=== PATIENT | female | born 1965 | race African-American/Black ===

== ENCOUNTER 2017-04-03 19:00 | Emergency (ER) | payer MEDICAID ==
[~2017-04-03] VITALS: Ht 170.2 cm; Wt 72.6 kg
[2017-04-03] MEDS ORDERED: DEPAKOTE250 MG PO (19:18)
[2017-04-03 19:30] VITALS: BP 125/74
--- NOTE | 2017-04-03 19:38 | Emergency Room Report ---
History of Present Illness General Chief Complaint: Fever Source: Patient Present Illness HPI 51 yo female patient presents to ER complaining of fever and flu-like symptoms x1 day. Patient complains of cough and congestion; complains of chest congestion and pain following onset of symptoms. Patient denies nausea, vomiting, diarrhea. Patient also complains of GAY. Denies vertigo, eye pain, loss of vision, hearing pain. Patient reports history of chronic ear infection and tinnitus being treated by primary care provider. Patient reports taking Excedrin and Ibuprofen this morning with mild relief of symptoms. Patient denies abdominal pain, dysuria, hematuria. Patient reports staying home from school secondary to flu symptoms. Patient denies history of sick contacts. Patient reports LMP began on March 30 and ended yesterday; denies abnormal menstrual period. Allergies: Coded Allergies: HYDROCODONE (Verified Allergy, Unknown, 04/03/17) Patient History Past Medical History: see triage record Last Menstrual Period: 03/30/17 Now: No Reviewed Nursing Documentation: PMH: Agreed, PSxH: Agreed Nursing Documentation-PMH Past Medical History: No History, Except For Review of Systems All Other Systems: negative except mentioned in HPI Physical Exam Vital Signs Date Time Temp Pulse Resp B/P (MAP) Pulse Ox O2 Delivery O2 Flow Rate FiO2 04/03/17 19:12 102.9 112 19 125/74 97 Room Air Sp02 EP Interpretation: reviewed, normal General Appearance: no apparent distress, alert, GCS 15, non-toxic Head: normocephalic, atraumatic Eyes: bilateral eye normal inspection, bilateral eye PERRL ENT: hearing grossly normal, normal pharynx, no angioedema, normal voice Neck: full range of motion, supple/symm/no masses Respiratory: chest non-tender, lungs clear, normal breath sounds, no respiratory distress, no retraction, no wheezing, speaking full sentences Cardiovascular #1: regular rate, rhythm Gastrointestinal: normal bowel sounds, non tender, soft, non-distended, no guarding, no rebound Musculoskeletal: back normal, digits/nails normal, gait/station normal, normal range of motion, non-tender Neurologic: alert, oriented x3, responsive, motor strength/tone normal, sensory intact, speech normal Psychiatric: mood/affect normal Skin: normal color, no rash, warm/dry, well hydrated Lymphatic: no adenopathy Medical Decision Making PA Attestation Dr. King is my supervising Physician whom patient management has been discussed with. Diagnostic Impression: Primary Impression: Upper respiratory tract infection ER Course Pt presents to ED c/o fever. DDX considered but are not limited to influenza, viral URI, pneumonia, strep throat, otitis media, sinusitis, UTI. VITAL SIGNS patient is febrile ORDERS: UA CXR EKG Influenza A/B ED INTERVENTIONS: Tylenol for fever and pain. Fever reduced following CXR negative for acute disease EKG negative for ST elevation, arrhythmia. UA shows microscopic hematuria, likely related to menstrual cycle. Patient instructed to followup with primary care provider and/or OBGYN for further treatment. Influenza swab negative. DISCHARGE: At this time pt is stable for d/c to home. Patient is no acute distress, nontoxic appearing, states "I feel better." -Rx given for Tylenol for fever/pain; patient complains of gastric distress with Ibuprofen. -Rx given for Tamiflu for influenza. Patient to take medications as instructed Will provide with patient care instructions and any necessary prescriptions. Care plan and follow-up instructions provided. Patient instructed to follow-up with primary care provider in 3 - 5 days. Patient questions asked and answered. Patient understands and agrees to treatment plan. ER precautions given. Patient instructed to return to ER immediately for any new or worsening of symptoms including but not limited to increasing SOB, persistent fever. Labs Test 04/03/17 20:20 Urine Color Pale yellow Urine Appearance Clear Urine pH 7 (4.5-8.0) Urine Specific [place] 1.005 (1.005-1.035) Urine Protein Negative (NEGATIVE) Urine Glucose (UA) Negative (NEGATIVE) Urine Ketones Negative (NEGATIVE) Urine Occult Blood 2+ (NEGATIVE) Urine Nitrite Negative (NEGATIVE) Urine Bilirubin Negative (NEGATIVE) Urine Urobilinogen Normal MG/DL (0.0-1.0) Urine Leukocyte Esterase Negative (NEGATIVE) Urine RBC 2-4 /HPF (0 - 2) Urine WBC 0-2 /HPF (0 - 2) Urine Squamous Epithelial Cells Few /LPF (NONE/OCC) Urine Bacteria Few /HPF (NONE) EKG Diagnostic Results Rate: tachycardiac Rhythm: NSR ST Segments: no acute changes Other Impression Reviewed by Dr. King. ASA given to the pt in ED: No PA Scribe Text Randall Penn PA-C Rhythm Strip Diag. Results EP Interpretation: yes Rate: 107 Rhythm: NSR, no PVC's, no ectopy MARVEL Scribe Text Randall Penn PA-C Chest X-Ray Diagnostic Results Chest X-Ray Diagnostic Results : Chest X-Ray Ordered: Yes # of Views/Limited/Complete: 1 View Indication: Chest Pain EP Interpretation: Yes PA Xray: Interpretation reviewed, by supervising MD, and agrees with findings. Interpretation: no consolidation, no effusion, no pneumothorax Impression: No acute disease - Reviewed by [facility] MARVEL Scribbret Text Randall Penn PA-C Last Vital Signs Date Time Temp Pulse Resp B/P (MAP) Pulse Ox O2 Delivery O2 Flow Rate FiO2 04/03/17 19:12 102.9 112 19 125/74 97 Room Air Disposition: HOME, SELF-CARE Condition: Stable Scripts Acetaminophen* (TYLENOL EXTRA STRENGTH*) 500 Mg Tablet 500 MG ORAL Q8H Y for Prn Headache/Temp > 101, #30 TAB 0 Refills Prov: Nakul Penn 04/03/17 Oseltamivir Phosphate (Tamiflu) 75 Mg Capsule 75 MG ORAL TWICE A DAY for 5 Days, #10 CAP Prov: Nakul Penn 04/03/17 Patient Instructions: Upper Gastrointestinal Series, [id number] Additional Instructions: Followup with primary care provider in 3 -5 days. Take medications as directed. Patient questions asked and answered. ER precautions given, patient instructed to return to ER immediately for any new or worsening of symptoms. Nakul Penn Apr 03, 2017 19:37
[2017-04-03] MEDS ORDERED: IBUPROFEN600 MG ORAL (19:55)
[2017-04-03] MEDS ORDERED: TAMIFLU75 MG ORAL (19:55)
[2017-04-03 20:52] LABS: APPEARANCE,URINE CLEAR; BILIRUBIN, URINE NEGATIVE (NEGATIVE); COLOR,URINE PALE YELLOW; GLUCOSE, URINE (UA) NEGATIVE (NEGATIVE); KETONES,URINE NEGATIVE (NEGATIVE); LEUKOCYTE ESTERASE ,URINE NEGATIVE (NEGATIVE); NITRITE,URINE NEGATIVE (NEGATIVE); PH,URINE 7 (4.5-8.0); PROTEIN,URINE NEGATIVE (NEGATIVE); UROBILINOGEN,URINE NORMAL MG/DL (0.0-1.0)
[2017-04-03 21:42] VITALS: BP 125/74
[2017-04-03] MEDS ORDERED: TYLENOL EXTRA500 MG ORAL (21:42)
--- NOTE | 2017-04-04 11:54 | Diagnostic Imaging Report ---
Indication: Chest pain Technique: One view of the chest Comparison: none Findings: Lungs and pleural spaces are clear. Heart size is normal Impression: No acute process This agrees with the preliminary interpretation provided overnight by [facility] teleradiology service.
--- NOTE | 2017-04-04 17:13 | Cardiology Report ---
APPROVED REPORT EKG Measurement Heart [id number] Sinus tachycardia Low voltage QRS Cannot rule out Anterior infarct, age undetermined Abnormal ECG
== END 2017-04-03 21:45 | disposition home or self-care (01) ==
LOC: EMR 19:35
DX: J06.9 Acute upper respiratory infection, unspecified (principal); Z88.6 Allergy status to analgesic agent
CPT/HCPCS: 71045; 81003; 86710; 93005; 99284

== ENCOUNTER 2017-08-24 19:29 | Emergency (ER) | payer MEDICAID ==
[~2017-08-24] VITALS: Ht 170.2 cm; Wt 74.8 kg
[~2017-08-24 19:29] MED LIST: DEPAKOTE250 MG PO; IBUPROFEN600 MG ORAL; TAMIFLU75 MG ORAL; TYLENOL EXTRA500 MG ORAL
[2017-08-24] MEDS ORDERED: Isovue-300 100ml vial INJ PRN (20:00)
[2017-08-24] MEDS ORDERED: Morphine Sulfate 4mg/ml Inj IVP ONE (20:00)
[2017-08-24 20:05] LABS: APPEARANCE,URINE CLEAR; BILIRUBIN, URINE NEGATIVE (NEGATIVE); COLOR,URINE PALE YELLOW; GLUCOSE, URINE (UA) NEGATIVE (NEGATIVE); KETONES,URINE NEGATIVE (NEGATIVE); LEUKOCYTE ESTERASE ,URINE NEGATIVE (NEGATIVE); NITRITE,URINE NEGATIVE (NEGATIVE); PH,URINE 8 (4.5-8.0); PROTEIN,URINE NEGATIVE (NEGATIVE); UROBILINOGEN,URINE NORMAL MG/DL (0.0-1.0)
--- NOTE | 2017-08-24 20:16 | Emergency Room Report ---
History of Present Illness General Chief Complaint: Abdominal Pain Source: Patient Present Illness HPI 51-year-old female with no major medical problems presents with 1 week of abdominal discomfort crampy, intermittent, sometimes epigastric, sometimes lower abdomen, worse with eating and drinking, and 2 days associated watery brown stools, total 10 episodes. Denies fevers, nausea, vomiting, antibiotic use , any obvious triggers. Allergies: Coded Allergies: HYDROCODONE (Verified Allergy, Unknown, 04/03/17) Patient History Past Medical History: see triage record Now: No Reviewed Nursing Documentation: PMH: Agreed; PSxH: Agreed Nursing Documentation-PMH Past Medical History: No History, Except For Review of Systems All Other Systems: negative except mentioned in HPI Physical Exam Vital Signs Date Time Temp Pulse Resp B/P (MAP) Pulse Ox O2 Delivery O2 Flow Rate FiO2 08/24/17 19:39 98.6 92 16 127/74 97 Room Air 98.6 Sp02 EP Interpretation: reviewed, normal General Appearance: no apparent distress, alert, non-toxic Head: normocephalic Eyes: bilateral eye normal inspection, bilateral eye PERRL, bilateral eye EOMI ENT: normal ENT inspection, hearing grossly normal, normal pharynx, no angioedema, normal voice, moist mucus membranes Neck: normal inspection, full range of motion, supple, supple/symm/no masses Respiratory: chest non-tender, lungs clear, normal breath sounds, chest symmetrical, palpation of chest normal Cardiovascular #1: normal peripheral pulses, regular rate, rhythm Cardiovascular #2: 2+ radial (R), 2+ radial (L) Gastrointestinal: normal inspection, non tender, soft, no mass, no guarding, no rebound Rectal: deferred Genitourinary: normal inspection, no CVA tenderness Musculoskeletal: back normal, gait/station normal, normal range of motion, non- tender, no calf tenderness Neurologic: alert, responsive, cleater III-XII nml as tested, motor strength/tone normal, sensory intact, speech normal Psychiatric: judgement/insight normal, memory normal, mood/affect normal, no suicidal/homicidal ideation Skin: normal color, no rash, warm/dry, normal turgor Lymphatic: no adenopathy Medical Decision Making Diagnostic Impression: Primary Impression: Abdominal pain Additional Impression: Hematuria ER Course Patient has had a normal workup other than having blood in her urine. CT scan, all labs, urinalysis, all otherwise unremarkable. Soft nontender abdomen on initial and repeat examination. IV morphine and Zofran helped, but then she started having crampy pain again, still nontender. Had no diarrhea here in the ED. Will discharge with Zantac twice a day and Bentyl when necessary. Recommend follow-up with PMD for gastroenterology referral CT/MRI/US Diagnostic Results CT/MRI/US Diagnostic Results : Imaging Test Ordered: ct abd/pelvis w/ iv contrast Impression no acute disease, possible slow gi transit based on finding of fecal contents within small bowel loops on [facility] reading Last Vital Signs Date Time Temp Pulse Resp B/P (MAP) Pulse Ox O2 Delivery O2 Flow Rate FiO2 08/24/17 19:39 98.6 92 16 127/74 97 Room Air 98.6 Disposition: HOME, SELF-CARE Condition: Stable Scripts Ranitidine Hcl* (ZANTAC*) 150 Mg Tablet 150 MG ORAL TWICE A DAY, #30 TAB Prov: BRIDGETT LOUIS M.D 08/24/17 Dicyclomine Hcl* (DICYCLOMINE HCL*) 10 Mg Capsule 10 MG PO QID PRN for Abdominal cramps, #10 CAP Prov: BRIDGETT LOUIS M.D 08/24/17 BRIDGETT LOUIS M.D Aug 24, 2017 20:16
[2017-08-24 20:21] LABS: BASOPHILS % (AUTO) 1.5 % (0.0-2.0); EOSINOPHILS % (AUTO) 2.6 % (0.0-3.0); HEMATOCRIT 39.1 % (37.0-47.0); HEMOGLOBIN 13.2 G/DL (12.0-16.0); LYMPHOCYTES % (AUTO) 28.6 % (20.0-45.0); MEAN CORPUSCULAR VOLUME 78 FL (80-99); MONOCYTES % (AUTO) 10.5 % (1.0-10.0); NEUTROPHILS % (AUTO) 56.8 % (45.0-75.0); PLATELET COUNT 221 K/UL (150-450); RED BLOOD COUNT 5.04 M/UL (4.20-5.40); WHITE BLOOD COUNT 4.3 K/UL (4.8-10.8)
[2017-08-24 20:29] LABS: ANION GAP 5 mmol/L (5-15); BLOOD UREA NITROGEN 14 mg/dL (7-18); CALCIUM 9.3 MG/DL (8.5-10.1); CARBON DIOXIDE 28 MMOL/L (21-32); CHLORIDE 104 MMOL/L (98-107); POTASSIUM 4.6 MMOL/L (3.5-5.1); SODIUM 137 MMOL/L (136-145)
[2017-08-24 20:34] LABS: ALANINE AMINOTRANSFERASE 27 U/L (12-78); ALBUMIN 3.6 G/DL (3.4-5.0); ALBUMIN/GLOBULIN RATIO 0.8 (1.0-2.7); ALKALINE PHOSPHATASE 48 U/L (46-116); ASPARTATE AMINO TRANSFERASE 31 U/L (15-37); BILIRUBIN,TOTAL 0.2 MG/DL (0.2-1.0)
[2017-08-24 21:15] VITALS: BP 138/75
--- NOTE | 2017-08-24 21:36 | Diagnostic Imaging Report ---
EXAM: CT Abdomen and Pelvis With Intravenous Contrast CLINICAL HISTORY: ABD PAIN TECHNIQUE: Axial computed tomography images of the abdomen and pelvis with intravenous contrast. CTDI is 14.03 mGy and DLP is 696 mGy-cm. One or more of the following dose reduction techniques were used: automated exposure control, adjustment of the mA and/or kV according to patient size, use of iterative reconstruction technique. COMPARISON: No relevant prior studies available. FINDINGS: Lung bases: Unremarkable. No mass. No consolidation. ABDOMEN: Liver: Unremarkable. No mass. Gallbladder and bile ducts: Unremarkable. No calcified stones. No ductal dilation. Pancreas: Unremarkable. No mass. No ductal dilation. Spleen: Benign small subcentimeter splenic cyst or hemangioma. Adrenals: Unremarkable. No mass. Kidneys and ureters: Unremarkable. No solid mass. No hydronephrosis. Stomach and bowel: Unremarkable. No obstruction. No mucosal thickening. PELVIS: Appendix: Normal appendix. Large stool burden throughout the colon. Fecal contents within small bowel loops, suggesting slow transit. Bladder: Unremarkable. No mass. Reproductive: Unremarkable as visualized. ABDOMEN and PELVIS: Intraperitoneal space: Unremarkable. No free air. No significant fluid collection. Bones/joints: No acute fracture. No dislocation. Soft tissues: Unremarkable. Vasculature: Unremarkable. No abdominal aortic aneurysm. Lymph nodes: Unremarkable. No enlarged lymph nodes. IMPRESSION: 1. Findings of slow transit, which may be a cause for pain. 2. Otherwise unremarkable study without explanation for patient's symptoms.
[2017-08-24] MEDS ORDERED: DICYCLOMINE HCL10 MG PO (21:56)
[2017-08-24] MEDS ORDERED: RANITIDINE HCL150 MG ORAL (21:56)
[2017-08-24] MEDS ORDERED: Dicyclomine 10mg Cap ORAL ONE (22:00)
[2017-08-24 22:19] VITALS: BP 110/75
[2017-08-24 22:20] VITALS: BP 110/75
== END 2017-08-24 22:20 | disposition home or self-care (01) ==
LOC: EMR 19:55
DX: R10.9 Unspecified abdominal pain (principal); Z88.8 Allergy status to other drugs, medicaments and biological substances; R31.9 Hematuria, unspecified
CPT/HCPCS: 36415; 74177; 80053; 81003; 83690; 84484; 85025; 96374; 96375; 99284; J2270; J2405; Q9967

== ENCOUNTER 2018-06-29 14:28 | Emergency (ER) | payer MEDICAID ==
[~2018-06-29] VITALS: Ht 165.1 cm; Wt 72.6 kg
[~2018-06-29 14:28] MED LIST changes: +DICYCLOMINE HCL10 MG PO; +RANITIDINE HCL150 MG ORAL
[2018-06-29 14:50] VITALS: BP 111/77
[2018-06-29] MEDS ORDERED: MECLIZINE HCL25 MG ORAL (15:08)
[2018-06-29] MEDS ORDERED: ROBAXIN-750750 MG PO (15:08)
[2018-06-29 15:17] VITALS: BP 111/77
--- NOTE | 2018-06-29 21:43 | Emergency Room Report ---
History of Present Illness General Chief Complaint: Dizziness Source: Patient Present Illness HPI The patient is a 52-year-old female presenting for feelings of dizziness as well as neck pain. She states that she was moving her neck quickly approximately 3 weeks prior and felt a sharp pain. Pain has persisted and is now a dull ache described as an 8 out of 10 with movement. Does not radiate. She has not taken any medications for this yet. She is also feeling dizziness with quick head movement. She denies other symptoms including nausea, vomiting , fever, chills, chest pain, headache Allergies: Coded Allergies: HYDROCODONE (Verified Allergy, Unknown, 04/03/17) Patient History Past Medical History: see triage record Pertinent Family History: none Last Menstrual Period: 06/29/2018 Reviewed Nursing Documentation: PMH: Agreed; PSxH: Agreed Nursing Documentation-PMH Past Medical History: No History, Except For Review of Systems All Other Systems: negative except mentioned in HPI Physical Exam Vital Signs Date Time Temp Pulse Resp B/P (MAP) Pulse Ox O2 Delivery O2 Flow Rate FiO2 06/29/18 14:44 98.2 78 16 97 Room Air 06/29/18 14:50 111/77 Sp02 EP Interpretation: reviewed, normal General Appearance: no apparent distress, alert, GCS 15, non-toxic Head: normocephalic, atraumatic Eyes: bilateral eye normal inspection, bilateral eye PERRL ENT: hearing grossly normal, normal pharynx, no angioedema, normal voice, uvula midline Neck: full range of motion, no carotid bruits, supple/symm/no masses, tender lateral Respiratory: chest non-tender, lungs clear, normal breath sounds, speaking full sentences Cardiovascular #1: regular rate, rhythm, no edema Musculoskeletal: back normal, gait/station normal, normal range of motion, non- tender Neurologic: alert, oriented x3, responsive, motor strength/tone normal, sensory intact, speech normal, nystagmus - horizontal Psychiatric: judgement/insight normal, memory normal, mood/affect normal, no suicidal/homicidal ideation Skin: normal color, no rash, warm/dry, well hydrated Medical Decision Making PA Attestation Dr. Borrego is my supervising physician. Patient management was discussed with my supervising physician Diagnostic Impression: Primary Impression: Cervical strain Qualified Codes: S16.1XXA - Strain of muscle, fascia and tendon at neck level , initial encounter Additional Impression: BPPV (benign paroxysmal positional vertigo) Qualified Codes: H81.10 - Benign paroxysmal vertigo, unspecified ear ER Course The patient is a 52-year-old female presenting for feelings of dizziness as well as neck pain. Differential diagnoses considered but not limited to: BPPV, cervical strain, migraine, carotid dissection, Mnire's disease, among others Physical exam: Afebrile. No apparent distress There is tenderness to palpation over the cervical paraspinal muscles. PERRL. EOMI. there is horizontal nystagmus. Fatigable. No carotid bruits The patient's feeling of dizziness is elicited with rapid horizontal head movement. She is given a prescription for meclizine and robaxin. She is told that she needs to follow-up with her primary doctor and may need referral for neurology and/or ENT ER precautions given Last Vital Signs Date Time Temp Pulse Resp B/P (MAP) Pulse Ox O2 Delivery O2 Flow Rate FiO2 06/29/18 15:17 98.2 78 16 111/77 97 Room Air Status: improved Disposition: HOME, SELF-CARE Condition: Improved Scripts Meclizine Hcl* (MECLIZINE*) 25 Mg Tablet 25 MG ORAL THREE TIMES A DAY, #20 TAB Prov: LIZANDRO DACOSTA P.A. 06/29/18 Methocarbamol* (ROBAXIN-750*) 750 Mg Tablet 750 MG PO TID, #21 TAB 0 Refills Prov: LIZANDRO DACOSTA P.A. 06/29/18 Referrals: NON PHYSICIAN (PCP) Patient Instructions: Vertigo Additional Instructions: I discussed my findings with the patient. All questions and concerns have been answered. Treatment and medication compliance have been addressed. I advised the patient that they need to follow up with PMD in 3-5 days. Return to ED if symptoms worsen, new symptoms arise, or if needed for any reason. Patient verbalized understanding of discharge instructions. Please follow-up with neurology and/or ear nose and throat doctor as discussed LIZANDRO DACOSTA June 29, 2018 21:43
== END 2018-06-29 15:17 | disposition home or self-care (01) ==
LOC: EMR 15:05
DX: S16.1XXA Strain of muscle, fascia and tendon at neck level, initial encounter (principal); H81.10 Benign paroxysmal vertigo, unspecified ear; Z88.6 Allergy status to analgesic agent; X50.1XXA Overexertion from prolonged static or awkward postures, initial encounter; Y92.9 Unspecified place or not applicable
CPT/HCPCS: 99282

== ENCOUNTER 2018-07-16 19:02 | Emergency (ER) | payer MEDICAID ==
[~2018-07-16] VITALS: Ht 170.2 cm; Wt 73.5 kg
[~2018-07-16 19:02] MED LIST changes: +MECLIZINE HCL25 MG ORAL; +ROBAXIN-750750 MG PO
[2018-07-16 19:25] VITALS: BP 139/89
--- NOTE | 2018-07-16 19:25 | NUR ---
ED Nurse Note: pt came from work to ed c/o of dog bite on right middle finger by her own dog. Pt is AO x 4times, VSS, on room air no dsitress. NAVEED seen Pt at bedside.
[2018-07-16] MEDS ORDERED: Tetanus/Diptheria/Pertussis IM ONE (20:00)
--- NOTE | 2018-07-16 20:16 | Emergency Room Report ---
History of Present Illness General Chief Complaint: Animal Bite Source: Patient Present Illness HPI 52-year-old female presents to the emergency department complaining of 5 out of 10 in severity pain localized to the right ring finger 2 hours. Patient reports that her friend's dog which is a small poodle bit her finger. Patient states that she had to pull the dog off of her hand. Patient denies being up-to -date with her tetanus vaccination. Patient reports bleeding has subsided at this time she denies taking blood thinning medications. She denies paresthesias or loss of gross motor movements of the extremity. No aggravating or relieving factors. Allergies: Coded Allergies: HYDROCODONE (Verified Allergy, Unknown, 04/03/17) Patient History Past Medical History: see triage record Past Surgical History: none Pertinent Family History: none Last Menstrual Period: 06/29/18 Now: No Reviewed Nursing Documentation: PMH: Agreed; PSxH: Agreed Nursing Documentation-PMH Past Medical History: No Stated History Review of Systems All Other Systems: negative except mentioned in HPI Physical Exam Vital Signs Date Time Temp Pulse Resp B/P (MAP) Pulse Ox O2 Delivery O2 Flow Rate FiO2 07/16/18 19:20 98.4 55 16 96 Room Air Sp02 EP Interpretation: reviewed, normal General Appearance: no apparent distress, alert, GCS 15, non-toxic Head: normocephalic, atraumatic Eyes: bilateral eye normal inspection, bilateral eye PERRL ENT: hearing grossly normal, normal voice Neck: full range of motion Respiratory: lungs clear, normal breath sounds, speaking full sentences Cardiovascular #1: regular rate, rhythm, normal capillary refill Musculoskeletal: back normal, gait/station normal, normal range of motion, tender - mild ttp to the distal right ring finger. Neurologic: alert, oriented x3, responsive, motor strength/tone normal, sensory intact, speech normal, grossly normal Psychiatric: judgement/insight normal Skin: normal color, no rash, warm/dry, well hydrated, laceration - dog bite of the right ring finger with scrape like appearance 0.7cm in length, not bleeding , not gaping, does not appear to have tendon involvement. Medical Decision Making PA Attestation Dr. adhikari is my supervising Physician whom patient management has been discussed with. Diagnostic Impression: Primary Impression: Dog bite of finger Qualified Codes: S61.259A - Open bite of unspecified finger without damage to nail, initial encounter; W54.0XXA - Bitten by dog, initial encounter ER Course Pt. presents to the ED c/o dog bite 4 days ago, tetanus not up to date, rabies on animal is UTD Ddx considered but are not limited to Cellulitis, rabies, fracture, neurovascular compromise of extremity. Vital signs: are WNL, pt. is afebrile H&PE are most consistent with dog bite of the right ring finger with scrape like appearance 0.7cm in length, not bleeding, not gaping, does not appear to have tendon involvement. ORDERS: X-ray fingers : WNL ED INTERVENTIONS: Tetanus vaccination is administered. --Copious irrigation of the wound was performed no obvious foreign body or tendon involvement after exploration. Hemostasis persists. Bacitracin and sterile dressing was applied. the wound is to heal by secondary intent DISCHARGE: At this time pt. is stable for d/c to home. Will provide printed patient care instructions, and any necessary prescriptions. Care plan and follow up instructions have been discussed with the patient prior to discharge. Other X-Ray Diagnostic Results Other X-Ray Diagnostic Results : X-Ray ordered: right fingers # of Views/Limited Vs Complete: 3 View Indication: Pain EP Interpretation: Yes PA Xray: Interpretation reviewed, by supervising MD, and agrees with findings. Interpretation: no dislocation, no soft tissue swelling, no fractures Impression: No acute disease Electronically Signed by: Nupur Roblero PA-C Last Vital Signs Date Time Temp Pulse Resp B/P (MAP) Pulse Ox O2 Delivery O2 Flow Rate FiO2 07/16/18 19:20 98.4 55 16 96 Room Air Status: improved Disposition: HOME, SELF-CARE Condition: Stable Scripts Acetaminophen* (TYLENOL EXTRA STRENGTH*) 500 Mg Tablet 500 MG ORAL Q6H, #20 TAB 0 Refills Prov: Nupur Roblero 07/16/18 Mupirocin* (MUPIROCIN*) 22 Gm Oint...g. 1 APPLIC TOPIC THREE TIMES A DAY, #22 GM Prov: Nupur Roblero 07/16/18 Amoxicillin/Potassium Clav 875-125* (AUGMENTIN 875-125 TABLET*) 1 Each Tablet 1 TAB ORAL TWICE A DAY for 7 Days, #14 TAB Prov: Nupur Roblero 07/16/18 Departure Forms: Return to Work Return to Work Date: July 17, 2018 Work Restrictions: No Heavy Lifting Other Restrictions: limit use of right hand. May return Sooner if Symptoms have resolved Return to Full Activity: July 24, 2018 Patient Instructions: Animal Bite Additional Instructions: Take medications as directed. Follow up with a Primary Care Provider in 3-5 days, even if your symptoms have resolved. Return sooner to ED if new symptoms occur, or current symptoms become worse. - Please note that this Emergency Department Report was dictated using [employer] Planseligibility technician technology software, occasionally this can lead to erroneous entry secondary to interpretation by the dictation equipment. Nupur Roblero July 16, 2018 20:15
[2018-07-16] MEDS ORDERED: Bacitracin Oint UD TOPIC ONE (20:30)
[2018-07-16] MEDS ORDERED: MUPIROCIN22 GM TOPIC (20:37)
[2018-07-16] MEDS ORDERED: TYLENOL EXTRA500 MG ORAL (20:37)
[2018-07-16] MEDS ORDERED: AUGMENTIN 875-1 EAC1 ORAL (20:37)
[2018-07-16 21:00] VITALS: BP 122/81
[2018-07-16 21:05] VITALS: BP 122/81
--- NOTE | 2018-07-16 21:05 | NUR ---
ER DISCHARGE NOTE: Patient is cleared to be discharged per ERMD, pt is aox4, on room air, with stable vital signs. pt was given dc and prescription instructions, pt was able to verbalize understanding, pt id band removed without complications. pt is able to ambulate with steady gait. pt took all belongings.
--- NOTE | 2018-07-17 11:20 | Diagnostic Imaging Report ---
Indication: Pain injury Comparison: None Findings: 3 views of the fourth digit in the right hand the obtained. No acute fracture, malalignment, radiopaque foreign body identified. IMPRESSION: Negative evaluation
== END 2018-07-16 21:05 | disposition home or self-care (01) ==
LOC: EMR 19:57
DX: S61.259A Open bite of unspecified finger without damage to nail, initial encounter (principal); W54.0XXA Bitten by dog, initial encounter; Y92.9 Unspecified place or not applicable; Z88.8 Allergy status to other drugs, medicaments and biological substances; Z23 Encounter for immunization
CPT/HCPCS: 90471; 90715; 99283

== ENCOUNTER 2019-01-26 07:56 | Emergency (ER) | payer MEDICAID ==
[~2019-01-26] VITALS: Ht 170.2 cm; Wt 73.0 kg
[~2019-01-26 07:56] MED LIST changes: +AUGMENTIN 875-1 EAC1 ORAL; +MUPIROCIN22 GM TOPIC
[2019-01-26 08:05] VITALS: BP 128/52
[2019-01-26] MEDS ORDERED: MONTELUKAST SOD10 MG ORAL (08:05)
--- NOTE | 2019-01-26 08:05 | NUR ---
ED Nurse Note: Patient walked into ED c/o cough and congestion for the past 3 days, reports blood tinged mucus. states that she has left sided headache that she rates a 7/10 pain. no changes in vision. patient is alert and oriented x4, ambulatory with a steady gait. will wait for further orders
[2019-01-26] MEDS ORDERED: TESSALON PERLE100 MG ORAL (08:28)
--- NOTE | 2019-01-26 08:28 | Emergency Room Report ---
History of Present Illness General Chief Complaint: Upper Respiratory Illness Source: Patient Present Illness HPI 53-year-old female, presents with cough, congestion, left earache, currently taking decongestants, no fevers no chills no chest pain or shortness of breath, she states that decongestants are helping, no aggravating factors severity is mild, constant, symptoms have been ongoing for 7 days, patient presents for evaluation Allergies: Coded Allergies: HYDROCODONE (Verified Allergy, Unknown, 04/03/17) Patient History Past Medical History: see triage record Reviewed Nursing Documentation: PMH: Agreed; PSxH: Agreed Nursing Documentation-PMH Past Medical History: No History, Except For Hx Cardiac Problems: No - migraine Review of Systems All Other Systems: negative except mentioned in HPI Physical Exam Vital Signs Date Time Temp Pulse Resp B/P (MAP) Pulse Ox O2 Delivery O2 Flow Rate FiO2 01/26/19 08:00 98.6 87 17 128/52 (77) 99 Room Air Sp02 EP Interpretation: reviewed, normal General Appearance: well appearing, no apparent distress, alert Head: normocephalic, atraumatic Eyes: bilateral eye PERRL, bilateral eye EOMI ENT: TMs + canals normal, uvula midline, moist mucus membranes, nasal congestion Neck: supple, thyroid normal, supple/symm/no masses Respiratory: lungs clear, no respiratory distress, no retraction, no accessory muscle use Cardiovascular #1: normal peripheral pulses, regular rate, rhythm, no edema, no gallop, no murmur Gastrointestinal: non tender, soft, no guarding, no rebound Musculoskeletal: normal inspection Neurologic: alert, oriented x3 Psychiatric: mood/affect normal Skin: no rash, warm/dry Medical Decision Making Diagnostic Impression: Primary Impression: Upper respiratory infection Qualified Codes: J06.9 - Acute upper respiratory infection, unspecified ER Course 53-year-old feel most likely with URI, no acute indications for antibiotics at this point, patient is currently managing her symptoms through decongestants We will provide Ginette Tomlin for the cough Differential diagnosis also includes pneumonia, URI, sinusitis Disposition Home with return precautions Chest X-Ray Diagnostic Results Chest X-Ray Diagnostic Results : Chest X-Ray Ordered: Yes # of Views/Limited/Complete: 1 View Indication: Other - Cough EP Interpretation: Yes Interpretation: no consolidation, no effusion, no pneumothorax, no acute cardiopulmonary disease Impression: No acute disease Electronically Signed by: Iban Sánchez MD Last Vital Signs Date Time Temp Pulse Resp B/P (MAP) Pulse Ox O2 Delivery O2 Flow Rate FiO2 01/26/19 08:05 98.6 76 17 128/52 99 Room Air Disposition: HOME, SELF-CARE Condition: Stable Scripts Benzonatate* (TESSALON PERLE*) 100 Mg Capsule 100 MG ORAL THREE TIMES A DAY PRN for For Cough, #30 PERLE Prov: Iban Sánchez MD 01/26/19 Referrals: NON PHYSICIAN (PCP) [facility]. [facility] Patient Instructions: Upper Respiratory Infection, Adult Additional Instructions: The patient was provided with discharge instructions, notified to follow-up with a primary care doctor and or specialist in the next 24-48 hours, and to return to the ED if they have worsening of their symptoms. Please note that this report is being documented using DRAGON technology. This can lead to erroneous entry secondary to incorrect interpretation by the dictating instrument. Iban Sánchez MD Jan 26, 2019 08:28
[2019-01-26 08:30] VITALS: BP 120/59
--- NOTE | 2019-01-26 08:49 | Diagnostic Imaging Report ---
EXAM: XR Chest, 1 View CLINICAL HISTORY: COUGH TECHNIQUE: Frontal view of the chest. COMPARISON: Chest x-ray 04-03-17 FINDINGS: Lungs: Hypoventilatory lungs. Mild bibasilar lung atelectasis. Lungs otherwise clear. Pleural space: Unremarkable. No pneumothorax. Heart: Unremarkable. No cardiomegaly. Mediastinum: Unremarkable. Bones/joints: Unremarkable. IMPRESSION: Hypoventilatory lungs. Mild bibasilar lung atelectasis. Lungs otherwise clear.
== END 2019-01-26 08:30 | disposition home or self-care (01) ==
LOC: EMR 08:14
DX: J06.9 Acute upper respiratory infection, unspecified (principal); Z88.8 Allergy status to other drugs, medicaments and biological substances
CPT/HCPCS: 71045; Z7502; 99283

== ENCOUNTER 2019-03-04 15:14 | Emergency (ER) | payer MEDICAID ==
[~2019-03-04] VITALS: Ht 170.2 cm; Wt 73.0 kg
[~2019-03-04 15:14] MED LIST changes: +MONTELUKAST SOD10 MG ORAL; +TESSALON PERLE100 MG ORAL
[2019-03-04] MEDS ORDERED: DYMISTA NASAL S23 GM NS (15:30)
[2019-03-04 16:24] VITALS: BP 112/64
[2019-03-04] MEDS ORDERED: Fluorescein Strips LEFT EYE ONE (16:30)
[2019-03-04] MEDS ORDERED: Tetracaine 0.5% Opth 4ml Soln LEFT EYE ONE (16:30)
--- NOTE | 2019-03-04 16:54 | Emergency Room Report ---
History of Present Illness General Chief Complaint: Eye Problems Source: Patient Present Illness HPI 53-year-old female presents to the emergency department complaining of 8 out of 10 severity pain, erythema and increased lacrimation to the left eye since yesterday after experiencing moderate itching and lid swelling. Patient also reports she has been having swelling and tenderness in the left maxillary sinus area x2 weeks. Patient denies discharge or crusting of the eye. She denies loss of vision, floaters, Flashing lights, diplopia/blurry vision. She does not use contacts. She denies fb sensation. She denies fevers or chills. She denies pain with eye movements. She reports moderate mucus in the nose x 2 weeks. She denies GAY, dizziness or recent head trauma. PT. also reports hx of hemorrhoids and currently has one with scant spotting intermittently on the TP. she denies blood in the stool. She reports hx of constipation. She denies rectal pain or d/ c. She denies abdominal pain or tenderness. Denies diarrhea, nausea or vomiting. Allergies: Coded Allergies: HYDROCODONE (Verified Allergy, Unknown, 04/03/17) Patient History Past Medical History: see triage record Past Surgical History: none Pertinent Family History: none Last Menstrual Period: 1-5 Now: No Reviewed Nursing Documentation: PMH: Agreed; PSxH: Agreed Nursing Documentation-PMH Past Medical History: No History, Except For Hx Cardiac Problems: No - migraine Hx Neurological Problems: Yes - Migraines Review of Systems All Other Systems: negative except mentioned in HPI Physical Exam Vital Signs Date Time Temp Pulse Resp B/P (MAP) Pulse Ox O2 Delivery O2 Flow Rate FiO2 03/04/19 15:23 98.2 78 18 115/62 (79) 99 Room Air Sp02 EP Interpretation: reviewed, normal General Appearance: no apparent distress, alert, GCS 15, non-toxic Head: normocephalic, atraumatic Eyes: left eye fluoroscene uptake, left eye Scleral Injection, left eye other - Increase fluorescein uptake in a linear horizontal fashion just above the iris of the left eye, there is no involvement of the iris or pupil. Negative Emily sign. ; bilateral eye PERRL, bilateral eye EOMI ENT: hearing grossly normal, EOM grossly intact, normal pharynx, normal voice, TMs + canals normal, uvula midline, moist mucus membranes, nasal congestion - moderate nasal congestion. the left nare is not patent. purulent rhinorrhea. TTP and swelling to the left maxillary sinus. Neck: full range of motion Respiratory: lungs clear, normal breath sounds, speaking full sentences Cardiovascular #1: regular rate, rhythm Rectal: deferred - pt. defers rectal exam. , hemorrhoids - per pt. was not examined. Musculoskeletal: normal range of motion, gait/station normal, non-tender Neurologic: alert, motor strength/tone normal, oriented x3, sensory intact, responsive, speech normal Psychiatric: judgement/insight normal Skin: no rash Lymphatic: no adenopathy Medical Decision Making PA Attestation Dr. Hou Is my supervising Physician whom patient management has been discussed with. Diagnostic Impression: Primary Impression: Bacterial sinusitis Additional Impressions: Corneal abrasion, left Qualified Codes: S05.02XA - Injury of conjunctiva and corneal abrasion without foreign body, left eye, initial encounter Hemorrhoids Qualified Codes: K64.9 - Unspecified hemorrhoids ER Course 53-year-old female presents to the emergency department complaining of 8 out of 10 severity pain, erythema and increased lacrimation to the left eye since yesterday after experiencing moderate itching and lid swelling. Patient also reports she has been having swelling and tenderness in the left maxillary sinus area x2 weeks. Patient denies discharge or crusting of the eye. She denies loss of vision, floaters, Flashing lights, diplopia/blurry vision. She does not use contacts. She denies fb sensation. She denies fevers or chills. She denies pain with eye movements. She reports moderate mucus in the nose x 2 weeks. She denies GAY, dizziness or recent head trauma. PT. also reports hx of hemorrhoids and currently has one with scant spotting intermittently on the TP. she denies blood in the stool. She reports hx of constipation. She denies rectal pain or d/ c. She denies abdominal pain or tenderness. Denies diarrhea, nausea or vomiting. Ddx considered but are not limited to: corneal abrasion, acute glaucoma, globe rupture, FB, Corneal Ulcer, conjunctivitis. Iridis Vital signs: are WNL, pt. is afebrile H&PE are most consistent with: corneal abrasion ORDERS: -Tetracaine and Fluorescein Stain of the Left eye: -Increase fluorescein uptake in a linear horizontal fashion just above the iris of the left eye, there is no involvement of the iris or pupil. Negative Emily sign. --Pt. had positive relief of pain with tetracaine drops. there was negative evidence of Fb, deep ulcer, or rupture. --Tonopen measured IOP as: 6, 21, 6 ED INTERVENTIONS: none at this time. DISCHARGE: At this time pt. is stable for d/c to home. Will provide printed patient care instructions, and any necessary prescriptions. Care plan and follow up instructions have been discussed with the patient prior to discharge. . Last Vital Signs Date Time Temp Pulse Resp B/P (MAP) Pulse Ox O2 Delivery O2 Flow Rate FiO2 03/04/19 16:24 98.2 70 18 112/64 99 Room Air Disposition: HOME, SELF-CARE Condition: Stable Scripts Hydrocortisone Hc 2.5% Cream (ANUSOL-HC 2.5% CREAM) Y Cr 1 APPLIC RC BID, #30 GM Prov: Nupur Roblero 03/04/19 Docusate Sodium* (COLACE*) 100 Mg Capsule 100 MG ORAL THREE TIMES A DAY, #30 CAP Prov: Nupur Roblero 03/04/19 Amoxicillin/Potassium Clav 875-125* (AUGMENTIN 875-125 TABLET*) 1 Each Tablet 1 TAB ORAL TWICE A DAY for 10 Days, #20 TAB Prov: Nupur Roblero 03/04/19 Ofloxacin (OCUFLOX) 5 Ml Drops 1 ML OP TID, #5 ML Prov: Nupur Roblero 03/04/19 Referrals: NON PHYSICIAN (PCP) Patient Instructions: Corneal Abrasion, [id number], Sinusitis, Adult, Easy-to -Read Additional Instructions: Take medications as directed. Follow up with a Assistant Teacher Primary within 3 days, even if your symptoms have resolved. --Please review list of primary care clinics, if you do not already have a primary care provider Return sooner to ED if new symptoms occur, or current symptoms become worse. - Please note that this Emergency Department Report was dictated using Clique Intelligenceexplosive operator bomb technology software, occasionally this can lead to erroneous entry secondary to interpretation by the dictation equipment. Nupur Roblero Mar 04, 2019 16:54
[2019-03-04] MEDS ORDERED: AUGMENTIN 875-1 EAC1 ORAL (17:02)
[2019-03-04] MEDS ORDERED: OCUFLOX5 ML OP (17:02)
[2019-03-04 17:20] VITALS: BP 109/68
[2019-03-04] MEDS ORDERED: COLACE100 MG ORAL (23:28)
[2019-03-04] MEDS ORDERED: ANUSOL-HC30 GM RC (23:28)
== END 2019-03-04 17:20 | disposition home or self-care (01) ==
LOC: EMR 15:59
DX: J32.8 Other chronic sinusitis (principal); S05.02XA Injury of conjunctiva and corneal abrasion without foreign body, left eye, initial encounter; K64.9 Unspecified hemorrhoids; Z88.6 Allergy status to analgesic agent
CPT/HCPCS: 99283

== ENCOUNTER → 2019-04-25 | Emergency (ER) | payer MEDICAID ==
[~2019-04-25] VITALS: Ht 170.2 cm; Wt 72.6 kg
[~2019-04-25] MED LIST changes: +ANUSOL-HC30 GM RC; +COLACE100 MG ORAL; +DYMISTA NASAL S23 GM NS; +OCUFLOX5 ML OP; +PROMETHAZINE-C118 M1 ORAL; +TYLENOL325 MG ORAL; +Tylenol #3 tab (300mg/30mg) ORAL ONE
--- NOTE | 2019-04-25 09:30 | NUR ---
ED Nurse Note: pt ambulated to ed d/t cough fever and chest congestion since sunday. Placed on bed, VSS, on RA; NAD.
[2019-04-25 09:43] VITALS: BP 112/64
--- NOTE | 2019-04-25 10:00 | Emergency Room Report ---
History of Present Illness General Chief Complaint: Flu Like Symptoms Source: Patient Present Illness HPI Patient was treated in February for upper respiratory infection with antibiotics. She took them all and the cough got better. For the last 4 days the cough has returned. She is complaining about pain in her chest. The cough is nonproductive. She had a fever last night. The pain in her chest is 10/10 and pleuritic. No nausea vomiting or diarrhea. She does not hear herself wheezing. The cough has been keeping her awake at night. No sore throat, palpitations, dysuria, abdominal pain, rashes, depression, anxiety, visual changes, dizziness, headache. No calf pain or edema. No family history or prior history of blood clots. 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 Reviewed Nursing Documentation: PMH: Agreed; PSxH: Agreed Nursing Documentation-PMH Past Medical History: No History, Except For Hx Cardiac Problems: No - migraine Hx Neurological Problems: Yes - Migraines Review of Systems All Other Systems: negative except mentioned in HPI Physical Exam Vital Signs Date Time Temp Pulse Resp B/P (MAP) Pulse Ox O2 Delivery O2 Flow Rate FiO2 04/25/19 09:25 99.1 102 20 112/64 (80) 98 Room Air Sp02 EP Interpretation: reviewed, normal General Appearance: well appearing, no apparent distress, GCS 15 Head: normocephalic Eyes: bilateral eye normal inspection, bilateral eye PERRL, bilateral eye EOMI ENT: normal pharynx, TMs + canals normal, moist mucus membranes Neck: supple Respiratory: lungs clear, normal breath sounds, other - Some anterior chest wall tenderness Cardiovascular #1: regular rate, rhythm Cardiovascular #2: 2+ radial (R) Gastrointestinal: normal inspection, normal bowel sounds, non tender, no mass, non-distended Musculoskeletal: back normal, normal range of motion, no calf tenderness, gait/ station normal, Wellington's Sign negative Neurologic: alert, oriented x3, normal inspection Psychiatric: mood/affect normal Skin: no rash, warm/dry Medical Decision Making Diagnostic Impression: Primary Impression: Viral upper respiratory infection ER Course Patient presents with severe chest pain and cough. Differential includes pneumonia, bronchitis, chest wall strain, costochondritis, pericarditis, pulmonary embolus amongst others. The patient's been taking Tylenol and Motrin. Evaluation with EKG and chest x-ray. Patient will be given a dose of Tylenol with codeine. Based on her clinical presentation pulmonary embolus is extremely unlikely. The patient will be given a dose of prednisone also. EKG no injury. CXR no infiltrates. Patient remarkably improved with decreased pain. Discussed treatment plan and the need to follow-up with her own doctor. No medical emergency at this time. Patient stable for outpatient observation and treatment. EKG Diagnostic Results Rate: normal Rhythm: NSR ST Segments: no acute changes Rhythm Strip Diag. Results EP Interpretation: yes Rhythm: NSR, no PVC's, no ectopy Chest X-Ray Diagnostic Results Chest X-Ray Diagnostic Results : Chest X-Ray Ordered: Yes # of Views/Limited/Complete: 1 View Indication: Chest Pain EP Interpretation: Yes Interpretation: no consolidation, no effusion, no pneumothorax Impression: No acute disease Electronically Signed by: Electronically signed by David Borrego MD Last Vital Signs Date Time Temp Pulse Resp B/P (MAP) Pulse Ox O2 Delivery O2 Flow Rate FiO2 04/25/19 11:02 99.1 87 20 112/64 98 Room Air Status: improved Disposition: HOME, SELF-CARE Condition: Improved Scripts Acetaminophen (Tylenol) 325 Mg Tablet 650 MG ORAL Q6H PRN for Prn Pain/Headache/Temp > 101, #20 TAB 0 Refills Prov: David Borrego MD 04/25/19 Ibuprofen* (MOTRIN*) 600 Mg Tablet 600 MG ORAL Q6H PRN for For Pain, #20 TAB Prov: David Borrego MD 04/25/19 Codeine/Promethazine Hcl* (PROMETHAZINE-CODEINE SYRUP*) 118 Ml Syrup 5 ML ORAL Q6H PRN for For Cough, #90 ML 0 Refills Prov: David Borrego MD 04/25/19 David Borrego MD Apr 25, 2019 10:00
[2019-04-25 11:02] VITALS: BP 112/64
--- NOTE | 2019-04-25 11:02 | NUR ---
ER DISCHARGE NOTE: Patient is cleared to be discharged per ERMD, pt is aox4, on room air, with stable vital signs. pt was given dc and prescription instructions, pt was able to verbalize understanding, pt id band removed. pt is able to ambulate with steady gait. pt took all belongings.
--- NOTE | 2019-04-25 18:07 | Diagnostic Imaging Report ---
Indication: Chest pain Technique: One view of the chest Comparison: 01/26/2019 Findings: Lungs and pleural spaces are clear. Heart size is normal. No significant change Impression: No acute process
== END | disposition home or self-care (01) ==
LOC: EMR 10:00
DX: J06.9 Acute upper respiratory infection, unspecified (principal); Z88.5 Allergy status to narcotic agent
CPT/HCPCS: 71045; 93005; J7512; Z7502; 99283

== ENCOUNTER 2019-08-01 14:05 | Emergency (ER) | payer MEDICAID ==
[~2019-08-01] VITALS: Ht 170.2 cm; Wt 72.6 kg
[~2019-08-01 14:05] MED LIST changes: -Tylenol #3 tab (300mg/30mg) ORAL ONE
[2019-08-01 14:45] VITALS: BP 143/84
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
[2019-08-01] MEDS ORDERED: Morgan Lens TOPIC ONE (15:00)
[2019-08-01] MEDS ORDERED: Ketorolac 30mg Inj IM ONE (15:00)
[2019-08-01] MEDS ORDERED: Tetracaine 0.5% Opth 4ml Soln RIGHT EYE ONE (15:15)
[2019-08-01] MEDS ORDERED: Tetracaine 0.5% Opth 4ml Soln LEFT EYE ONE (15:15)
--- NOTE | 2019-08-01 15:25 | NUR ---
ED Nurse Note: irrigation via Roland lenses was done, patient tolerated procedure well.
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
[2019-08-01] MEDS ORDERED: IBUPROFEN600 M1 ORAL (16:43)
[2019-08-01] MEDS ORDERED: OLOPATADINE HCL5 ML OP (16:43)
[2019-08-01] MEDS ORDERED: SILVER SULFADIA50 GM TP (16:43)
[2019-08-01 16:50] VITALS: BP 143/84
--- NOTE | 2019-08-01 16:50 | NUR ---
ED Nurse Note: Pt cleared by health care Provider for discharge. DC instructions/prescription was given and explained to pt and verbalized understanding of teachings. All medical deviecs such as ID band removed. Pt is AAO x4, ambulatory and left with all personal belongings.
== END 2019-08-01 16:50 | disposition home or self-care (01) ==
LOC: EMR 16:40
DX: T20.16XA Burn of first degree of forehead and cheek, initial encounter (principal); H10.9 Unspecified conjunctivitis; X12.XXXA Contact with other hot fluids, initial encounter; Y92.9 Unspecified place or not applicable; Z88.6 Allergy status to analgesic agent
CPT/HCPCS: 96372; J1885; Z7502; 99283